=== PATIENT | male | born 1950 | race Caucasian/White ===

== ENCOUNTER 2022-03-01 12:34 | Outpatient (CLI) | payer MEDICARE, MEDICAID, SELFPAY ==
--- NOTE | 2022-03-01 12:45 | MR_ITS ---
WS: [id number] MRI LEFT KNEE NONCONTRAST TECHNIQUE: Axial PD, coronal PD fat sat, coronal PD, sagittal PD, and sagittal PD fat-sat images obta ined. CLINICAL INFORMATION: PAIN IN R KNEE COMPARISON: 015 FINDINGS: Distal quadriceps and patella tendons are intact. Hypertrophic patella. Moderate suprapatellar effusi on. Lobulated complex popliteal cyst measuring 2.4 x 2.1 x 7.1 cm. ACL and PCL are intact. Mucoid deg eneration of the ACL with chronic thinning has progressed compared to previous. Advanced tricompartme ntal arthritis with medial and lateral joint space narrowing. Moderate chondromalacia patella. Normal medial and lateral patellar retinaculum. Medial and lateral collateral ligaments appear grossly inta ct. Chronic thinning of the medial and lateral meniscus. Complex tear involving the anterior horn lat eral meniscus appears new from previous. Blunting of the anterior horn lateral meniscus. Horizontal u ndersurface tear posterior horn medial meniscus is unchanged. Peripheral extrusion of the lateral men iscus progressed compared to previous. Advanced chondromalacia involving the medial and lateral joint compartments. Subchondral edema involv ing the lateral femoral condyle and tibial plateau. This is progressed compared to previous.. MR/MR knee LT wo con* [id number] IMPRESSION: 1. Advanced tricompartmental arthritis is progressed compared to 2015. Advance d chondromalacia with subchondral edema involving the lateral femoral condyle a nd tibial plateau. 2. Complex tear involving the anterior horn lateral meniscus is new from previ ous with peripheral extrusion. 3. Moderate suprapatellar effusion. 4. Lobulated popliteal cyst has increased in size compared to previous today m easuring 2.4 x 2.1 x 7.1 cm 5. Chronic thinning of the ACL with mucoid degeneration. This is progressed co mpared to previous. Normal PCL. 6. Moderate chondromalacia patella. Outbridge grading: grade III: partial-thickness cartilage loss with focal ulcer ation
== END 2022-03-01 12:35 | disposition home or self-care (01) ==
LOC: RAD 12:36
PROVIDERS: PCP Nurse Practitioner; Visit Provider Nurse Practitioner
DX: M13.862 Other specified arthritis, left knee (principal); M22.42 Chondromalacia patellae, left knee; R60.0 Localized edema; S83.272A Complex tear of lateral meniscus, current injury, left knee, initial encounter; M25.462 Effusion, left knee; X58.XXXA Exposure to other specified factors, initial encounter; M71.22 Synovial cyst of popliteal space [Baker], left knee
CPT/HCPCS: 73721

== ENCOUNTER → 2022-04-11 12:47 | Outpatient (BNVA) | payer MEDICARE, MEDICAID, SELFPAY | PROVIDERS: PCP Nurse Practitioner; Referring Provider Nurse Practitioner; Visit Provider Orthopaedic Surgery | DX: M17.12 Unilateral primary osteoarthritis, left knee (principal) | CPT/HCPCS: 73560; 73565; 99203 ==

== ENCOUNTER → 2022-06-29 08:52 | Outpatient (BNVA) | payer MEDICARE, MEDICAID, SELFPAY | PROVIDERS: PCP Nurse Practitioner Family; Visit Provider Podiatrist Foot & Ankle Surgery | DX: S92.311A Displaced fracture of first metatarsal bone, right foot, initial encounter for closed fracture (principal); X58.XXXA Exposure to other specified factors, initial encounter; R23.8 Other skin changes; S92.321A Displaced fracture of second metatarsal bone, right foot, initial encounter for closed fracture | CPT/HCPCS: 10140; 99203 ==

== ENCOUNTER 2022-06-29 14:17 | Outpatient (CLI) | payer MEDICARE, MEDICAID, SELFPAY | END 2022-06-29 14:18 | disposition home or self-care (01) | LOC: SPT 14:20 | PROVIDERS: PCP Nurse Practitioner Family; Visit Provider Podiatrist Foot & Ankle Surgery | DX: Z46.89 Encounter for fitting and adjustment of other specified devices (principal); S92.321S Displaced fracture of second metatarsal bone, right foot, sequela; S92.31 Fracture of first metatarsal bone; X58.XXXS Exposure to other specified factors, sequela | CPT/HCPCS: L4361 ==

== ENCOUNTER → 2022-07-06 09:44 | Outpatient (BNVA) | payer MEDICARE, MEDICAID, SELFPAY | PROVIDERS: PCP Nurse Practitioner Family; Visit Provider Podiatrist Foot & Ankle Surgery | DX: S92.313A Displaced fracture of first metatarsal bone, unspecified foot, initial encounter for closed fracture (principal); S92.321A Displaced fracture of second metatarsal bone, right foot, initial encounter for closed fracture; W23.0XXA Caught, crushed, jammed, or pinched between moving objects, initial encounter | CPT/HCPCS: 99213 ==

== ENCOUNTER → 2022-07-06 10:03 | Outpatient (BNVA) | payer MEDICARE, MEDICAID, SELFPAY | PROVIDERS: PCP Nurse Practitioner Family; Visit Provider Podiatrist Foot & Ankle Surgery | DX: S92.321A Displaced fracture of second metatarsal bone, right foot, initial encounter for closed fracture (principal); S92.311A Displaced fracture of first metatarsal bone, right foot, initial encounter for closed fracture; X58.XXXA Exposure to other specified factors, initial encounter | CPT/HCPCS: 73630 ==

== ENCOUNTER → 2022-07-19 10:07 | Outpatient (BNVA) | payer MEDICARE, MEDICAID, SELFPAY | PROVIDERS: PCP Nurse Practitioner Family; Visit Provider Podiatrist Foot & Ankle Surgery | DX: S92.313A Displaced fracture of first metatarsal bone, unspecified foot, initial encounter for closed fracture (principal); S92.321A Displaced fracture of second metatarsal bone, right foot, initial encounter for closed fracture; W23.0XXA Caught, crushed, jammed, or pinched between moving objects, initial encounter | CPT/HCPCS: 73630; 99213 ==

== ENCOUNTER 2022-07-27 07:46 | Outpatient (CLI) | payer MEDICARE, MEDICAID, SELFPAY ==
--- NOTE | 2022-07-27 08:45 | USCV_ITS ---
Brodie Blankenship Age: 71 Gender: M : 1950 Exam Date: 07/27/2022 08:07 Ordering Phys: Linda LopezP Technologist: Sheron Crockett Exam Location: [facility] Indication: dizziness, weakness, Risk Factors: Smoker Previous Vascular Surgery: Unknown Right Brachial BP: / Left Brachial BP: / Right Left Velocity (cm/s) Spectral Plaque Velocity (cm/s) Spectral Plaque Syst/Diast Broadening Syst/Diast Broadening 93.70/ 18.70 Prox CCA 80.20 / 17.10 93.70/ 15.40 Mid CCA 58.40 / 17.60 67.30/ 13.20 Distal CCA 63.20 / 12.00 Pipe 59.70/ 10.90 Prox ICA 45.10 / 10.90 53.80/ 11.80 Mid ICA 91.40 / 24.80 80.60/ 19.30 Distal ICA 113.10/ 25.00 135.60 ECA 127.40 0.86 ICA/CCA 1.41 Antegrade Vertebral Antegrade 51.30/ 10.90 cm/s 47.40/ 10.10 cm/s Tri Subclavian Tri 158.3 164.7 0 0 CONCLUSIONS Right ICA stenosis <50%. Mild atheromatous plaque right carotid bulb/ICA. Left ICA stenosis <50%. Mild calcified atheromatous plaque left carotid bulb/ICA. Normal antegrade Doppler flow noted in the right vertebral artery. Normal antegrade Doppler flow noted in the left vertebral artery. Chung Cruz MD (Electronically Signed) Final Date: 27 July 2022 09:01 S
== END 2022-07-27 07:47 | disposition home or self-care (01) ==
PROVIDERS: PCP Nurse Practitioner Family; Visit Provider Nurse Practitioner Family
DX: R42 Dizziness and giddiness (principal); R53.1 Weakness; I65.23 Occlusion and stenosis of bilateral carotid arteries
CPT/HCPCS: 93880

== ENCOUNTER → 2022-08-09 10:59 | Outpatient (BNVA) | payer MEDICARE, MEDICAID, SELFPAY | PROVIDERS: PCP Nurse Practitioner Family; Visit Provider Podiatrist Foot & Ankle Surgery | DX: S92.321A Displaced fracture of second metatarsal bone, right foot, initial encounter for closed fracture (principal); S92.311A Displaced fracture of first metatarsal bone, right foot, initial encounter for closed fracture; X58.XXXA Exposure to other specified factors, initial encounter | CPT/HCPCS: 73630; 99213 ==

== ENCOUNTER → 2022-08-30 10:06 | Outpatient (BNVA) | payer MEDICARE, MEDICAID, SELFPAY | PROVIDERS: PCP Nurse Practitioner Family; Visit Provider Podiatrist Foot & Ankle Surgery | DX: S92.313A Displaced fracture of first metatarsal bone, unspecified foot, initial encounter for closed fracture (principal); S92.321A Displaced fracture of second metatarsal bone, right foot, initial encounter for closed fracture; X58.XXXA Exposure to other specified factors, initial encounter | CPT/HCPCS: 73630; 99213 ==

== ENCOUNTER 2022-09-03 13:33 | Outpatient (CLI) | payer MEDICARE, MEDICAID, SELFPAY ==
--- NOTE | 2022-09-03 13:48 | CT_ITS ---
WS: [id number] LDCT LUNG CANCER SCREENING TECHNIQUE: Noncontrast CT of the chest with coronal and sagittal reformatted images. CLINICAL INFORMATION: COPD WITH ACUTE EXACERBATION, TOBACCO USE COMPARISON: None. DLP: 72.01 mGy.cm DIvol: Mean CTDIvol: 1.60 (mGy) All CT scans at [facility] use at least one of these dose optimization techniques: automat ed exposure control; mA and/or kV adjustment per patient size (includes targeted exams where dose is matched to clinical indication); or iterative reconstruction. FINDINGS:Calcified granulomas. Mild chronic emphysematous changes. No acute pulmonary infiltrates. Sc attered fibrosis in the RIGHT upper lobe. LEFT adrenal adenoma measuring 2.6 cm. Cholecystectomy clips. Normal RIGHT adrenal gland. Normal GE j unction. Hypertrophic changes thoracic spine. Benign appearing bone island in the upper thoracic spin e. Vascular calcification. Coronary calcification. CT/CT lung screening [id number] IMPRESSION: LUNG-RADS: 1-Negative FOLLOW UP: 12 Month: Continue annual screening with LDCT
== END 2022-09-03 13:34 | disposition home or self-care (01) ==
PROVIDERS: PCP Nurse Practitioner Family; Visit Provider Nurse Practitioner Family
DX: Z12.2 Encounter for screening for malignant neoplasm of respiratory organs (principal); Z87.891 Personal history of nicotine dependence
CPT/HCPCS: 71271

== ENCOUNTER 2022-10-04 12:06 | Outpatient (CLI) | payer MEDICARE, MEDICAID, SELFPAY ==
--- NOTE | 2022-10-04 12:10 | CT_ITS ---
WS: [id number] CT adrenals with and without contrast. HISTORY: BENIGN NEOPLASM OF LEFT ADRENAL GLAND Noncontrast 5 mm imaging is performed through the abdomen with attention to the adrenal glands. Addit ional 1 minute and 15 minute delayed images are then performed through the adrenal glands. CONTRAST: Omnipaque 350; 95 mL IV. DLP: 2165.[address] scans at [facility] use at least one of these dose optimization techniques: automated e xposure control; mA and/or kV adjustment per patient size (includes targeted exams where dose is matc hed to clinical indication); or iterative reconstruction. COMPARISON: No similar studies. Prior CT lung screen 09/03/2022 Lower thorax: Small granulomata at the lung bases. Heart size is normal. Small hiatal hernia. Liver: Normal. No intrahepatic dilatation. Gallbladder: Normally distended with cholelithiasis. Pancreas: Normal. Spleen: Normal. ADRENAL GLANDS. RIGHT: Normal. No mass or enlargement. LEFT: Well-circumscribed mass in the LEFT adrenal gland measures 2.3 x 3.1 cm. Hounsfield units are v erika slightly elevated. Absolute washout calculated at 62%. Relative washout calculated at 40%. Consis tent with benign adenoma. Right kidney: Normal size kidneys with mild perinephric stranding. 2 small to characterize subcentime ter hypodensity from the posterior kidney. Left kidney: Normal size kidney with perinephric stranding. Hyperdense cyst in the mid kidney. There is a smaller cyst lower pole. Aorta: Mild atherosclerosis. GI tract: No GI tract obstruction. There are a few diverticula in the distal colon. No adenopathy or free fluid. Abdominal wall: Focal fatty replacement LEFT rectus muscle. Visualized osseous structures: Unremarkable. CT/CT abdomen wo/w con [id number] IMPRESSION: 1. LEFT adrenal adenoma. No additional imaging necessary. 2. Cholelithiasis without acute cholecystitis. 3. Colonic diverticulosis without acute diverticulitis.
[2022-10-04] MEDS: iohexol 350 mg/mL 500 mL Btl (per mL) IV (12:14)
[2022-10-04 12:48] LABS: Blood Urea Nitrogen 3 mg/dL (8-23)
== END 2022-10-04 12:07 | disposition home or self-care (01) ==
LOC: RAD 12:07
PROVIDERS: PCP Nurse Practitioner Family; Visit Provider Nurse Practitioner Family
DX: D35.02 Benign neoplasm of left adrenal gland (principal); K80.20 Calculus of gallbladder without cholecystitis without obstruction; K57.90 Diverticulosis of intestine, part unspecified, without perforation or abscess without bleeding
CPT/HCPCS: 74170; 82565; 84520

== ENCOUNTER → 2022-10-09 12:39 | Outpatient (BNVA) | payer MEDICARE, MEDICAID, SELFPAY | PROVIDERS: PCP Nurse Practitioner Family; Visit Provider Podiatrist Foot & Ankle Surgery | DX: S92.311A Displaced fracture of first metatarsal bone, right foot, initial encounter for closed fracture (principal); S92.321A Displaced fracture of second metatarsal bone, right foot, initial encounter for closed fracture; X58.XXXA Exposure to other specified factors, initial encounter | CPT/HCPCS: 73630; 99213 ==

== ENCOUNTER → 2022-11-15 16:04 | Outpatient (BNVA) | payer MEDICARE, MEDICAID, SELFPAY | PROVIDERS: PCP Nurse Practitioner Family; Visit Provider Internal Medicine Cardiovascular Disease | DX: R06.02 Shortness of breath (principal); I25.10 Atherosclerotic heart disease of native coronary artery without angina pectoris; G47.33 Obstructive sleep apnea (adult) (pediatric); E78.2 Mixed hyperlipidemia; I11.0 Hypertensive heart disease with heart failure; I50.32 Chronic diastolic (congestive) heart failure; J44.1 Chronic obstructive pulmonary disease with (acute) exacerbation; F17.200 Nicotine dependence, unspecified, uncomplicated; I48.11 Longstanding persistent atrial fibrillation | CPT/HCPCS: 36415; 80048; 83880; 99214 ==

== ENCOUNTER 2022-12-06 12:31 | Outpatient (CLI) | payer MEDICARE, MEDICAID, SELFPAY ==
[2022-12-06 13:27] LABS: Anion Gap 13.4 (5-19); Blood Urea Nitrogen 11 mg/dL (8-23); Calcium 9.6 mg/dL (8.5-10.5); Carbon Dioxide 27 mmol/L (22-29); Chloride 100 mmol/L (98-107); Glucose 124 mg/dL (65-115); NT Pro B Type Natriuretic Pept 145 pg/mL (0-125); Osmolality Calculated 283 mOsm/kg (285-295); Potassium 4.4 mmol/L (3.5-5.1); Sodium 136 mmol/L (136-145)
== END 2022-12-06 12:32 | disposition home or self-care (01) ==
LOC: LAB 12:34
PROVIDERS: PCP Nurse Practitioner Family; Visit Provider Internal Medicine Cardiovascular Disease
DX: I11.0 Hypertensive heart disease with heart failure (principal); I25.10 Atherosclerotic heart disease of native coronary artery without angina pectoris; I48.11 Longstanding persistent atrial fibrillation; I50.32 Chronic diastolic (congestive) heart failure; E11.65 Type 2 diabetes mellitus with hyperglycemia
CPT/HCPCS: 36415; 80048; 83880

== ENCOUNTER → 2023-03-25 13:20 | Outpatient (BNVA) | payer MEDICARE, MEDICAID, SELFPAY | PROVIDERS: PCP Nurse Practitioner Family; Visit Provider Nurse Practitioner Family | DX: I25.10 Atherosclerotic heart disease of native coronary artery without angina pectoris (principal); G47.33 Obstructive sleep apnea (adult) (pediatric); I48.11 Longstanding persistent atrial fibrillation; I11.0 Hypertensive heart disease with heart failure; I50.32 Chronic diastolic (congestive) heart failure; F17.200 Nicotine dependence, unspecified, uncomplicated; Z79.01 Long term (current) use of anticoagulants; J44.1 Chronic obstructive pulmonary disease with (acute) exacerbation | CPT/HCPCS: 99214 ==

== ENCOUNTER → 2023-03-27 10:50 | Outpatient (BNVA) | payer MEDICARE, MEDICAID, SELFPAY | PROVIDERS: PCP Nurse Practitioner Family; Visit Provider Podiatrist Foot & Ankle Surgery | DX: E11.65 Type 2 diabetes mellitus with hyperglycemia (principal); B35.1 Tinea unguium; G62.89 Other specified polyneuropathies; Z79.84 Long term (current) use of oral hypoglycemic drugs | CPT/HCPCS: 11721 ==

== ENCOUNTER 2023-04-21 15:39 | Emergency (ER) | payer MEDICARE, MEDICAID, SELFPAY ==
[2023-04-21 15:40] VITALS: BP 147/65; PULSE 84; RESP 16; TEMP 36.9; O2SAT 92
--- NOTE | 2023-04-21 16:02 | CTR_ITS ---
PROCEDURE INFORMATION: Exam: CT Head Without Contrast Exam date and time: 04/21/2023 4:11 PM Age: 72 years old Clinical indication: Stroke-like symptoms; Drowsines/somnolence and speech disturbance; Additional info: Symptoms of acute stroke TECHNIQUE: Imaging protocol: Computed tomography of the head without contrast. Radiation optimization: All CT scans at this facility use at least one of these dose optimization techniques: automated exposure control; mA and/or kV adjustment per patient size (includes targeted exams where dose is matched to clinical indication); or iterative reconstruction. Other technique: STROKE PROTOCOL was implemented. REPORTING DATA: Count of CT and Cardiac NM exams in prior 12 months: This patient has received 2 known CTs and 0 known cardiac nuclear medicine studies in the 12 months prior to the current study. COMPARISON: No relevant prior studies available. RADIATION DOSE METRICS: Total DLP (mGy-cm): 1072.68 FINDINGS: Brain: There is white matter lucency consistent with chronic microvascular disease. As seen on series 4, image 19 there is a left basal ganglia infarct measuring 13 mm x 6 mm. Craniocaudad dimension is 10 mm. Age is uncertain. No cortical infarct. No hemorrhage or extra-axial collection. Cerebral ventricles: There is no hydrocephalus. There is no hydrocephalus. Paranasal sinuses: Visualized sinuses are unremarkable. No fluid levels. Mastoid air cells: Visualized mastoid air cells are well aerated. Bones/joints: Unremarkable. No acute fracture. Soft tissues: Unremarkable. CT/CT head thrombolytic [id number] IMPRESSION: Chronic microvascular disease. 13 mm left basal ganglia infarct of uncertain age. This may be subacute ASSESSMENT: ASPECTS ([place] Stroke Program Early CT Score) 9
--- NOTE | 2023-04-21 16:06 | ED_ITS ---
HPI - Neuro Symptoms/Deficit General: Chief Complaint: Neuro Symptoms/Deficit Stated Complaint: AMS Time Seen by Provider: 04/21/23 15:41 Source: patient Mode of arrival: EMS Limitations: no limitations History of Present Illness: This 72-year-old male with a history of COPD, CHF, diabetes and hypertension was brought in by EMS for evaluation of speech difficulty. Patient notes that he was deep in sleep when the woke him up around 2 PM. When he got up, he noticed he could not talk. He knew what he wanted to say but he could not verbalize it. This lasted for about 15 minutes. EMS was called and they brought him in for evaluation. Now, patient is back to his baseline and has no focal weakness. This has never happened to him before and he has no prior history of CVA. Associated symptoms: Deny chest pain or headache(s) Review of Systems Const: Denies: chills, body aches or change in appetite Eyes: Denies: change in vision or eye discharge ENMT: Denies: throat pain, dental pain or nasal discharge Card: Denies: chest pain or lightheadedness : Denies: dysuria Musc: Denies: neck pain or back pain Neuro: Reports: other (Difficulty speaking.); Denies: headache(s) or weakness in extremities Psych: Denies: depression Abbe/Lymph: Denies: easy bruising All/Imm: Denies: urticaria, tongue swelling or facial swelling PFSH ED PFSH: Medical History Arthritis Atrial fibrillation CAD (coronary artery disease) CHF (congestive heart failure) Chronic depression Diabetes Hyperlipidemia Hypertension Insomnia Obstructive sleep apnea Restless leg syndrome Family History Mother CAD (coronary artery disease) Sister CAD (coronary artery disease) Brother CAD (coronary artery disease) Denies family history of Diabetes Clotting disorder Dementia Chronic kidney disease (CKD) Suicide Anesthesia complication Bleeding disorder Lung disease Cancer Stroke Social History Smoking and tobacco status: current every day smoker Alcohol intake: never Substance/Drug Use: never Physical Exam Const: COMMON NORMALS: no acute distress, patient oriented x3, no limitations and alert HENMT: COMMON NORMALS: normocephalic HEAD & SCALP: normocephalic Eye: COMMON NORMALS: EOMs intact bilaterally Neck/C-Spine: COMMON NORMALS: full ROM and supple Chest: COMMONS NORMALS: normal inspection of the chest Resp: COMMON NORMALS: normal respiratory effort, No retractions, No use of accessory muscles and clear to auscultation bilaterally AUSCULTATION: clear to auscultation bilaterally Cardio: COMMON NORMALS: regular rate, regular rhythm and No murmurs present (Cardio) RATE: regular rate RHYTHM: regular rhythm GI: COMMON NORMALS: Normal to inspection, nondistended, normoactive bowel sounds present and non-tender : COMMON NORMALS: Yes no CVA tenderness BLADDER/KIDNEY EXAM: Yes no CVA tenderness Back/Pelvis: COMMON NORMALS: no CVA tenderness and no thoracic nor lumbar te nderness Extremity: GENERAL: Yes normal exam except as noted Neuro: COMMON NORMALS: patient oriented x3 and no focal motor deficits SENSORIUM/ORIENTATION: Yes alert SPEECH: speech normal MOTOR EXAM: 5/5 motor strength present throughout OTHER: NIH stroke scale is 0. Psych: COMMON NORMALS: mental status grossly normal and cooperative Course Vital Signs: Vital signs: Vital Signs Temperature 98.5 F 04/21/23 15:40 Pulse Rate 84 04/21/23 15:40 Respiratory Rate 18 04/21/23 16:36 Blood Pressure 140/78 04/21/23 17:57 Pulse Oximetry 94 04/21/23 16:36 Oxygen Delivery Me thod Room Air 04/21/23 16:36 MDM - Neuro Symptoms/Deficit Medical Decision Making Medical decision making: Patient presents with expressive aphasia that lasted for about 15 minutes at around 2 PM today. Since then, patient has been at his baseline. NIH stroke scale is 0. CT brain reveals chronic microvascular disease. 13 mm x 6 mm left basal ganglia infarct of uncertain age. This may be subacute. I discussed the case with Dr. Witt, neurologist on-call. We reviewed patient's medical records together including the fact that he had a carotid Doppler ultrasound on 07/27/2022. It showed a less than 50% right ICA stenosis and a less than 50% left ICA stenosis. He currently takes Eliquis and Plavix. Dr. Witt advised him to continue taking those medications. There is no indication to admit patient at this time. Dr. Witt will see him in the office in a week's time. This was relayed to patient who verbalized understanding and agrees with the plan. Reasons to return were discussed. Lab Data 04/21/23 16:30 04/21/23 16:[address] 04/21/23 16:02 IMPRESSION: Chronic microvascular disease. 13 mm left basal ganglia infarct of uncertain age. This may be subacute ASSESSMENT: ASPECTS ([place] Stroke Program Early CT Score) 9 ADDENDUM: 04/21/23 [id number] THIS REPORT CONTAINS FINDINGS THAT MAY BE CRITICAL TO PATIENT CARE. The findings were verbally communicated via telephone conference with DIMITRI UP at 5:03 PM CDT on 04/21/2023. The findings were acknowledged and understood. Laboratory Results WBC 8.8 10^3/uL (4.0-10.0) 04/21/23 16:30 RBC 3.96 10^6/uL (4.1-5.3) L 04/21/23 16:30 Hgb 9.8 g/dL (11.7-16.6) L 04/21/23 16:30 Hct 33.6 % (42.0-52.0) L 04/21/23 16:30 MCV 84.8 fl (80-94) 04/21/23 16:30 MCH 24.7 pg (28.0-34.0) L 04/21/23 16:30 MCHC 29.2 g/dL (30.0-36.0) L 04/21/23 16:30 RDW 15.8 % (12.1-15.1) H 04/21/23 16:30 Plt Count 244 10^3/cmm (130-400) 04/21/23 16:30 MPV 10.2 fL (7.4-10.4) 04/21/23 16:30 Neut % (Auto) 71.6 % 04/21/23 16:30 Lymph % (Auto) 15.4 % 04/21/23 16:30 [place] % (Auto) 9.4 % 04/21/23 16:30 Eos % (Auto) 2.2 % 04/21/23 16:30 Baso % (Auto) 0.9 % 04/21/23 16:30 Neut # (Auto) 6.29 10^3/uL (1.8-7.7) 04/21/23 16:30 Lymph # (Auto) 1.4 10^3/uL (0.8-4.8) 04/21/23 16:30 [place] # (Auto) 0.8 10^3/uL (0.2-0.9) 04/21/23 16:30 Eos # (Auto) 0.2 10^3/uL (0.0-0.8) 04/21/23 16:30 Baso # (Auto) 0.1 10^3/uL (0.0-0.1) 04/21/23 16:30 Nucleated RBC % (auto) 0 % 04/21/23 16:30 Nucleated RBCs # 0.0 /100WBC 04/21/23 16:30 PT 13.60 SECONDS (12.1-14.9) 04/21/23 16:30 INR 1.01 (0.8-1.2) 04/21/23 16:30 APTT 28.9 SECONDS (23.9-36.7) 04/21/23 16:30 Sodium 138 mmol/L (136-145) 04/21/23 16:30 Potassium 3.2 mmol/L (3.5-5.1) L 04/21/23 16:30 Chloride 97 mmol/L (98-107) L 04/21/23 16:30 Carbon Dioxide 27 mmol/L (22-29) 04/21/23 16:30 Anion Gap 17.2 (5-19) 04/21/23 16:30 BUN 6 mg/dL (8-23) L 04/21/23 16:30 Creatinine 0.9 mg/dL (0.7-1.2) 04/21/23 16:30 GFR Calculation Not Reportable 04/21/23 16:30 Glucose 161 mg/dL (65-115) H 04/21/23 16:30 Calculated Osmolality 287 mOsm/kg (285-295) 04/21/23 16:30 Calcium 8.7 mg/dL (8.5-10.5) 04/21/23 16:30 Total Bilirubin 0.3 mg/dL (0.15-1.2) 04/21/23 16:30 AST 17 U/L (0-40) 04/21/23 16:30 ALT 16 U/L (0-41) 04/21/23 16:30 Alkaline Phosphatase 70 U/L (40-130) 04/21/23 16:30 Total Protein 6.5 g/dL (6.6-8.7) L 04/21/23 16:30 Albumin 3.8 g/dL (3.5-5.2) 04/21/23 16:30 Globulin 2.7 g/dL (1.3-4.6) 04/21/23 16:30 EKG Data EKG 1: Interpretation: Sinus rhythm, rate of 89, PVCs, prolonged NM interval, normal axis, no STEMI. Discharge Plan Discharge Patient Disposition: Home Clinical Impression: TIA (transient ischemic attack) Condition: Stable Prescriptions: No Action ropinirole 2 mg tablet 4 mg PO DAILY trazodone 150 mg tablet 150 mg PO BEDTIME tamsulosin 0.4 mg capsule 0.4 mg PO DAILY metoprolol succinate 100 mg tablet extended release 24 hr 100 mg PO DAILY clopidogrel [Plavix] 75 mg tablet 75 mg PO DAILY Eliquis 5 mg tablet 5 mg PO BID magnesium oxide 400 mg magnesium tablet 400 mg PO DAILY omeprazole 20 mg capsule,delayed release(DR/EC) 20 mg PO DAILY amlodipine 5 mg tablet 5 mg PO DAILY Qty: 30 5RF rosuvastatin [Crestor] 10 mg tablet 10 mg PO DAILY Qty: 30 5RF (DME) Diabetic shoes with 3 pairs of inserts See Rx Instructions .Route .MEDSUPPLY Qty: 1 0RF Rx Instructions: As directed HOME budesonide-formoterol [Symbicort] 160-4.5 mcg/actuation HFA aerosol inhaler 2 inh inhalation BID Qty: 10.2 1RF gabapentin 300 mg capsule 300 mg PO TID metformin 750 mg tablet extended release 24 hr 750 mg PO DAILY (DME) Cam boot to right See Rx Instructions .Route .MEDSUPPLY Qty: 1 0RF Rx Instructions: As directed furosemide [Lasix] 20 mg tablet 20 mg PO DAILY Qty: 30 5RF potassium chloride 8 mEq tablet extended release 8 meq PO DAILY Qty: 30 5RF Jardiance 10 mg tablet 10 mg PO DAILY Qty: 30 5RF spironolactone 25 mg tablet 25 mg PO DAILY Qty: 30 5RF albuterol sulfate 2.5 mg /3 mL (0.083 %) solution for nebulization 2.5 mg inhalation Q6H PRN (Reason: Shortness Of Breath) Nitrostat 0.4 mg Tablet, Sublingual 0.4 mg SUBLINGUAL Q5M PRN (Reason: Chest Pain) Rx Instructions: do not exceed 3 doses per episode duloxetine 60 mg capsule,delayed release(DR/EC) 60 mg PO DAILY lisinopril 40 mg tablet 40 mg PO DAILY ProAir RespiClick 90 mcg/actuation aerosol powdr breath activated 1 inh inhalation Q6H PRN (Reason: Shortness Of Breath) Discharge Orders: Discharge ED (Routine); Ordered 04/21/23 Ordered By: Dimitri Up Referrals: Shanta Irby, [employer]AL [employer]ATER [Primary Care Provider] - Patient Instructions: Opioid Safety, Pain Management Activity Restrictions/Additional Instructions: Follow-up with Dr. Bauer in the office in a week's time. Also schedule an appointment to follow-up with your automation clerk. Return if you develop any new or worsening symptoms. Coding Level of Care Code ED Administrative Resources Associate for Kelsey Andre
--- NOTE | 2023-04-21 16:18 | ECG_ITS ---
[facility] Test Date: 2023-04-21 Pat Name: Brodie Blankenship Department: Room: Gender: Male Pbx Wire Chief: : 1950 Requested By: Dimitri Easley Order Number: [id number] MD: Rock Grady M.D. Measurements Intervals [place] Rate: 89 P: 56 [place]: 215 QRS: 36 QRSD: 97 T: 50 QT: 383 QTc: 467 Interpretive Statements SINUS RHYTHM WITH FIRST DEGREE AV BLOCK WITH FREQUENT SUPRAVENTRICULAR PREMATURE COMPLEXES LOW QRS VOLTAGE IN PRECORDIAL LEADS [QRS DEFLECTION < 1.0 mV IN CHEST LEADS] ANTEROSEPTAL MYOCARDIAL INFARCTION , PROBABLY OLD [40+ ms Q WAVE IN V1-V4] Compared to ECG 02/24/2019 02:13:59 First degree AV block now present Atrial fibrillation no longer present Myocardial infarct finding still present Electronically Signed On 04-21-2023 23:10:10 CDT by Rock Grady M.D. [email or web address]
[2023-04-21 16:36] VITALS: RESP 18; O2SAT 94
[2023-04-21 16:41] LABS: Basophils # 0.1 10^3/uL (0.0-0.1); Basophils % 0.9 %; Eosinophils # 0.2 10^3/uL (0.0-0.8); Eosinophils % 2.2 %; Hematocrit 33.6 % (42.0-52.0); Hemoglobin 9.8 g/dL (11.7-16.6); Lymphocytes # 1.4 10^3/uL (0.8-4.8); Lymphocytes % 15.4 %; Mean Corpuscular HGB Conc 29.2 g/dL (30.0-36.0); Mean Corpuscular Hemoglobin 24.7 pg (28.0-34.0); Mean Corpuscular Volume 84.8 fl (80-94); Mean Platelet Volume 10.2 fL (7.4-10.4); Monocytes # 0.8 10^3/uL (0.2-0.9); Monocytes % 9.4 %; Neutrophils # 6.29 10^3/uL (1.8-7.7); Neutrophils % 71.6 %; Nucleated Red Blood Cells % 0 %; Platelet Count 244 10^3/cmm (130-400); Red Blood Count 3.96 10^6/uL (4.1-5.3); Red Cell Distribution Width 15.8 % (12.1-15.1); White Blood Count 8.8 10^3/uL (4.0-10.0)
[2023-04-21 16:53] LABS: INR 1.01 (0.8-1.2); Partial Thromboplastin Time 28.9 SECONDS (23.9-36.7)
[2023-04-21 17:09] LABS: Alanine Aminotransferase 16 U/L (0-41); Albumin Level 3.8 g/dL (3.5-5.2); Alkaline Phosphatase 70 U/L (40-130); Anion Gap 17.2 (5-19); Aspartate Amino Transferase 17 U/L (0-40); Blood Urea Nitrogen 6 mg/dL (8-23); Calcium 8.7 mg/dL (8.5-10.5); Carbon Dioxide 27 mmol/L (22-29); Chloride 97 mmol/L (98-107); Globulin 2.7 g/dL (1.3-4.6); Glucose 161 mg/dL (65-115); Osmolality Calculated 287 mOsm/kg (285-295); Potassium 3.2 mmol/L (3.5-5.1); Sodium 138 mmol/L (136-145); Total Bilirubin 0.3 mg/dL (0.15-1.2); Total Protein 6.5 g/dL (6.6-8.7)
[2023-04-21 17:57] VITALS: BP 140/78
--- NOTE | 2023-04-22 13:53 | DCPLANNER ---
Addendum entered by Lauren Ruiz 04/25/23 10:34: manager technical sales received the following message from the neurology clinic regarding follow up appointment: attempted to contact pt several times and never recvied an anwser Original Note: manager technical sales had message to schedule a follow up appointment for patient with neurology. manager technical sales sent patients information to the front office staff at neurology. Patients information will be printed and reviewed. Clinic will call patient with appointment information.
== END 2023-04-21 19:07 | disposition home or self-care (01) ==
PROVIDERS: Emergency Provider Family Medicine; PCP Nurse Practitioner Family
DX: G45.9 Transient cerebral ischemic attack, unspecified (principal); R93.0 Abnormal findings on diagnostic imaging of skull and head, not elsewhere classified
CPT/HCPCS: 70450; 80053; 85025; 85610; 85730; 93005; 99285

== ENCOUNTER → 2023-05-30 15:29 | Outpatient (BNVA) | payer MEDICARE, MEDICAID, SELFPAY | PROVIDERS: PCP Nurse Practitioner Family; Visit Provider Internal Medicine Cardiovascular Disease | DX: I50.32 Chronic diastolic (congestive) heart failure (principal); R06.02 Shortness of breath; I25.10 Atherosclerotic heart disease of native coronary artery without angina pectoris; I11.0 Hypertensive heart disease with heart failure; E78.2 Mixed hyperlipidemia; E11.65 Type 2 diabetes mellitus with hyperglycemia; I48.11 Longstanding persistent atrial fibrillation; F17.200 Nicotine dependence, unspecified, uncomplicated | CPT/HCPCS: 80048; 83880; 99214 ==

== ENCOUNTER → 2023-06-20 12:22 | Outpatient (BNVA) | payer MEDICARE, MEDICAID, SELFPAY | PROVIDERS: PCP Nurse Practitioner Family; Visit Provider Internal Medicine Pulmonary Disease | DX: J44.1 Chronic obstructive pulmonary disease with (acute) exacerbation (principal); R06.02 Shortness of breath; F17.200 Nicotine dependence, unspecified, uncomplicated | CPT/HCPCS: 36415; 82785; 86003; 99204 ==

== ENCOUNTER 2023-07-04 11:57 | Outpatient (CLI) | payer MEDICARE, MEDICAID, SELFPAY ==
--- NOTE | 2023-07-04 12:15 | CT_ITS ---
WS: [id number] LDCT LUNG CANCER SCREENING HISTORY: lung cancer screening TECHNIQUE: Axial imaging performed from the apices to 1 cm below the costophrenic angles. Coronal and sagittal reformats are submitted with axial MIP series. All CT scans at [facility] use at least one of these dose optimization techniques: automated exposure control; mA and/or kV adjustment per patient size (includes targeted exams where dose is matched to clinical indication); or iterativ e reconstruction. DLP: 155.59 mGy.cm DIvol: Mean CTDIvol: 3.70 (mGy) COMPARISON: 09/03/2022 Diagnostic quality: Quality is degraded by body habitus. Lungs: Centrilobular and paraseptal emphysema. Scattered granulomata. Peripheral interstitial fibrosi s. No pulmonary mass or nodule. No endobronchial lesions. Heart: Normal size heart. Moderate [place] coronary artery calcification burden.. Other findings: Moderate atherosclerotic plaque within the thoracic aorta. Normal size pulmonary cristina ry. No mediastinal or hilar adenopathy. Small hiatal hernia. Mild hepatic steatosis. Cholelithiasis. Stable left adrenal adenoma. IMPRESSION: CT/CT lung screening [id number] LUNG-RADS: 1S-Negative with Significant Findings FOLLOW UP: 12 Month: Continue annual screening with LDCT OTHER FINDINGS (S MODIFIER): Moderate coronary artery atherosclerosis. Consider evaluation by cardiology.
== END 2023-07-04 11:58 | disposition home or self-care (01) ==
PROVIDERS: PCP Nurse Practitioner Family; Visit Provider Internal Medicine Pulmonary Disease
DX: F17.200 Nicotine dependence, unspecified, uncomplicated (principal); J44.1 Chronic obstructive pulmonary disease with (acute) exacerbation; Z12.2 Encounter for screening for malignant neoplasm of respiratory organs
CPT/HCPCS: 71271

== ENCOUNTER 2023-07-11 12:48 | Outpatient (CLI) | payer MEDICARE, MEDICAID, SELFPAY ==
[2023-07-11 13:09] VITALS: PULSE 86; RESP 18; O2SAT 95
[2023-07-11] MEDS: albuterol 2.5 mg/3 mL Neb INHALATION (13:09)
[2023-07-11 13:14] VITALS: PULSE 90
== END 2023-07-11 12:49 | disposition home or self-care (01) ==
LOC: RT 12:49
PROVIDERS: PCP Nurse Practitioner Family; Visit Provider Internal Medicine Pulmonary Disease
DX: J44.1 Chronic obstructive pulmonary disease with (acute) exacerbation (principal); R06.02 Shortness of breath; F17.210 Nicotine dependence, cigarettes, uncomplicated; R94.2 Abnormal results of pulmonary function studies
CPT/HCPCS: 94060; 94618; 94726; 94729

== ENCOUNTER → 2023-08-19 08:16 | Outpatient (BNVA) | payer MEDICARE, MEDICAID, SELFPAY | PROVIDERS: PCP Nurse Practitioner Family; Visit Provider Internal Medicine Pulmonary Disease | DX: J43.9 Emphysema, unspecified (principal); J84.10 Pulmonary fibrosis, unspecified; G47.33 Obstructive sleep apnea (adult) (pediatric); I50.32 Chronic diastolic (congestive) heart failure; Z12.2 Encounter for screening for malignant neoplasm of respiratory organs; I25.10 Atherosclerotic heart disease of native coronary artery without angina pectoris; Z71.6 Tobacco abuse counseling; F17.210 Nicotine dependence, cigarettes, uncomplicated; Z91.199 Patient's noncompliance with other medical treatment and regimen due to unspecified reason; Z95.5 Presence of coronary angioplasty implant and graft; I11.0 Hypertensive heart disease with heart failure | CPT/HCPCS: 36415; 85651; 86038; 86140; 86200; 86225; 86235; 86431; 99214 ==

== ENCOUNTER → 2023-09-30 11:10 | Outpatient (BNVA) | payer MEDICARE, MEDICAID, SELFPAY | PROVIDERS: PCP Nurse Practitioner Family; Visit Provider Podiatrist Foot & Ankle Surgery | DX: E11.65 Type 2 diabetes mellitus with hyperglycemia; B35.1 Tinea unguium; G62.89 Other specified polyneuropathies; E11.42 Type 2 diabetes mellitus with diabetic polyneuropathy; Z79.84 Long term (current) use of oral hypoglycemic drugs | CPT/HCPCS: 11721 ==

== ENCOUNTER → 2023-12-10 13:36 | Outpatient (BNVA) | payer MEDICARE, MEDICAID, SELFPAY | PROVIDERS: PCP Nurse Practitioner Family; Visit Provider Internal Medicine Cardiovascular Disease | DX: I11.0 Hypertensive heart disease with heart failure (principal); I50.32 Chronic diastolic (congestive) heart failure; E78.2 Mixed hyperlipidemia; I48.11 Longstanding persistent atrial fibrillation; I25.10 Atherosclerotic heart disease of native coronary artery without angina pectoris; F17.210 Nicotine dependence, cigarettes, uncomplicated | CPT/HCPCS: 99214 ==

== ENCOUNTER → 2024-01-29 11:34 | Outpatient (BNVA) | payer MEDICARE, MEDICAID, SELFPAY | PROVIDERS: PCP Nurse Practitioner Family; Visit Provider Internal Medicine Rheumatology | DX: Z79.899 Other long term (current) drug therapy (principal); M19.90 Unspecified osteoarthritis, unspecified site | CPT/HCPCS: 36415; 73630; 80076; 82565; 83520; 85025; 85651; 86140; 99204 ==

== ENCOUNTER → 2024-02-17 08:18 | Outpatient (BNVA) | payer MEDICARE, MEDICAID, SELFPAY | PROVIDERS: PCP Nurse Practitioner Family; Visit Provider Internal Medicine Pulmonary Disease | DX: J43.9 Emphysema, unspecified (principal); J84.10 Pulmonary fibrosis, unspecified; G47.33 Obstructive sleep apnea (adult) (pediatric); I50.32 Chronic diastolic (congestive) heart failure; Z12.2 Encounter for screening for malignant neoplasm of respiratory organs; I25.10 Atherosclerotic heart disease of native coronary artery without angina pectoris; Z71.6 Tobacco abuse counseling | CPT/HCPCS: 99214 ==

== ENCOUNTER → 2024-03-30 10:52 | Outpatient (BNVA) | payer MEDICARE, MEDICAID, SELFPAY | PROVIDERS: PCP Nurse Practitioner Family; Visit Provider Podiatrist Foot & Ankle Surgery | DX: B35.1 Tinea unguium (principal); E11.65 Type 2 diabetes mellitus with hyperglycemia; G62.89 Other specified polyneuropathies; Z79.84 Long term (current) use of oral hypoglycemic drugs | CPT/HCPCS: 11721; 99213 ==

== ENCOUNTER → 2024-06-09 13:37 | Outpatient (BNVA) | payer MEDICARE, MEDICAID, SELFPAY | PROVIDERS: PCP Nurse Practitioner Family; Visit Provider Internal Medicine Cardiovascular Disease | DX: I25.10 Atherosclerotic heart disease of native coronary artery without angina pectoris (principal); I11.0 Hypertensive heart disease with heart failure; I50.32 Chronic diastolic (congestive) heart failure; E78.2 Mixed hyperlipidemia; I48.11 Longstanding persistent atrial fibrillation; Z79.01 Long term (current) use of anticoagulants; F17.210 Nicotine dependence, cigarettes, uncomplicated | CPT/HCPCS: 99214 ==

== ENCOUNTER 2024-07-14 13:39 | Outpatient (CLI) | payer MEDICARE, MEDICAID, SELFPAY ==
--- NOTE | 2024-07-14 13:52 | CT_ITS ---
WS: [id number] LDCT LUNG CANCER SCREENING TECHNIQUE: Noncontrast CT of the chest with coronal and sagittal reformatted images. CLINICAL INFORMATION: NICOTINE DEPENDENCE,CIGARETTES COMPARISON: CT 07/04/2023 DLP: 122.77 mGy.cm DIvol: Mean CTDIvol: 3.20 (mGy) All CT scans at [facility] use at least one of these dose optimization techniques: automat ed exposure control; mA and/or kV adjustment per patient size (includes targeted exams where dose is matched to clinical indication); or iterative reconstruction. FINDINGS: No new suspicious pulmonary parenchymal abnormalities. Chronic emphysematous changes. Normal caliber thoracic aorta. Aortic calcification. Coronary calcific ation. No mediastinal or hilar lymphadenopathy. No axillary lymphadenopathy. Stable LEFT adrenal adenoma. Normal RIGHT adrenal gland. Tiny esophageal hiatal hernia. Mild thoracic curve. Hypertrophic changes thoracic spine. Mild thoracic kyphosis. CT/CT lung screening [id number] IMPRESSION: LUNG-RADS: 1-Negative FOLLOW UP: 12 Month: Continue annual screening with LDCT
== END 2024-07-14 13:40 | disposition home or self-care (01) ==
PROVIDERS: PCP Nurse Practitioner Family; Visit Provider Nurse Practitioner Family
DX: F17.210 Nicotine dependence, cigarettes, uncomplicated (principal); I70.0 Atherosclerosis of aorta; I25.10 Atherosclerotic heart disease of native coronary artery without angina pectoris
CPT/HCPCS: 71271

== ENCOUNTER → 2024-10-26 13:18 | Outpatient (BNVA) | payer MEDICARE, MEDICAID, SELFPAY | PROVIDERS: PCP Nurse Practitioner Family; Visit Provider Specialist | DX: M17.0 Bilateral primary osteoarthritis of knee | CPT/HCPCS: 20610; 73560; 73565; 99204; J7318 ==

== ENCOUNTER → 2024-12-14 12:33 | Outpatient (BNVA) | payer MEDICARE, MEDICAID, SELFPAY | PROVIDERS: PCP Nurse Practitioner Family; Referring Provider Nurse Practitioner Family; Visit Provider Nurse Practitioner Family | DX: L57.8 Other skin changes due to chronic exposure to nonionizing radiation (principal); D22.39 Melanocytic nevi of other parts of face; D48.5 Neoplasm of uncertain behavior of skin; L57.0 Actinic keratosis | CPT/HCPCS: 11102; 17000; 99203 ==

== ENCOUNTER → 2025-02-15 13:47 | Outpatient (BNVA) | payer MEDICARE, MEDICAID, SELFPAY | PROVIDERS: PCP Nurse Practitioner Family; Visit Provider Dermatology | DX: D04.62 Carcinoma in situ of skin of left upper limb, including shoulder (principal); B07.8 Other viral warts; L53.8 Other specified erythematous conditions; L29.89 Other pruritus; L57.0 Actinic keratosis; D48.5 Neoplasm of uncertain behavior of skin | CPT/HCPCS: 11102; 17000; 17110; 17273 ==

== ENCOUNTER → 2025-07-13 14:06 | Outpatient (BNVA) | payer OTHER, MEDICAID, SELFPAY | PROVIDERS: PCP Nurse Practitioner Family; Visit Provider Student in an Organized Health Care Education/Training Program | DX: M17.0 Bilateral primary osteoarthritis of knee (principal) | CPT/HCPCS: 20610; 73560; 73565; 99214; J3301; J9999 ==

== ENCOUNTER 2025-10-05 13:43 | Outpatient (CLI) | payer OTHER, MEDICAID, SELFPAY ==
--- NOTE | 2025-10-05 13:49 | US_ITS ---
WS: [id number] INDICATION: Soft tissue neck mass TECHNIQUE: Ultrasound soft tissue area of concern. FINDINGS: In the area of concern, RIGHT cervical chain posterior to the right ear, there is a markedly enlarged pathologic appearing lymph node with diffuse cortical thickening and narrowing of the fatty hilum. Lymph node measures 3.6 x 2.4 x 1.5 cm. Until proven otherwise, findings suspicious for neoplasm in a patient this age. Recommend further evaluation with contrast-enhanced CT neck. Lymph node demonstrates increased vascularity as well. US/US soft tissue head neck [id number] IMPRESSION: 1. Highly suspicious lymph node in the area of concern with a pathologic allie earance suspicious for neoplasm in a patient of this age until proven otherwise . Recommend further evaluation with contrast-enhanced CT neck.
== END 2025-10-05 13:44 | disposition home or self-care (01) ==
LOC: RAD 13:44
PROVIDERS: PCP Nurse Practitioner Family; Visit Provider Nurse Practitioner Family
DX: R59.0 Localized enlarged lymph nodes (principal); M79.89 Other specified soft tissue disorders
CPT/HCPCS: 76536

== ENCOUNTER → 2025-10-19 13:02 | Outpatient (BNVA) | payer MEDICARE, MEDICAID, SELFPAY | PROVIDERS: PCP Nurse Practitioner Family; Visit Provider Student in an Organized Health Care Education/Training Program | DX: M17.0 Bilateral primary osteoarthritis of knee (principal) | CPT/HCPCS: 99213 ==

== ENCOUNTER → 2025-11-02 10:35 | Outpatient (BNVA) | payer MEDICARE, MEDICAID, SELFPAY | PROVIDERS: PCP Nurse Practitioner Family; Visit Provider Physician Assistant | DX: M17.0 Bilateral primary osteoarthritis of knee (principal) | CPT/HCPCS: 20610; 99213; J7318 ==

== ENCOUNTER 2025-11-15 11:07 | Outpatient (CLI) | payer MEDICARE, MEDICAID, SELFPAY ==
--- NOTE | 2025-11-15 11:14 | CT_ITS ---
WS: [id number] CT NECK WITH CONTRAST HISTORY: ABNORMAL FINDINGS IN DIAGNOSTIC IMAGING TECHNIQUE: Contiguous 2 mm axial images are performed through the neck with intravenous contrast. Sagittal and coronal reformats are also submitted. All CT scans at [facility] use at least one of these dose optimization techniques: automated exposure control; mA and/or kV adjustment per patient size (includes targeted exams where dose is matched to clinical indication); or iterative reconstruction. CONTRAST: CONTRAST: Omnipaque 350; 100 mL IV. DLP: 244.44 mGy.cm COMPARISON: RIGHT neck ultrasound 10/05/2025 Bilateral intensely enhancing masses are identified within each parotid gland. The largest in the RIGHT parotid gland corresponds to the palpable abnormality. This mass is reniform in shape and diffusely enhancing measuring 2.2 x 1.7 x 2.3 cm. Suspect this is an abnormal lymph node. There are additional similar enhancing mass within the RIGHT parotid gland. Numerous but smaller masses in the LEFT parotid gland. The largest mass in the superficial parotid measures 1.3 x 1.1 x 1.6 cm. There is an additional mass in the superficial more anterior LEFT parotid gland which is smaller. There are a few additional lymph nodes along the cervical chains which are not particularly enlarged. These lymph nodes do not appear pathologic. Small superior mediastinal lymph nodes. Normal appearance of the thyroid. Submandibular glands and sublingual glands are unremarkable. Nasopharynx and oropharynx are normal. Atherosclerosis in the aortic arch. Visualized paranasal sinuses and mastoid air cells are normal. Chronic appearing interstitial lung disease at the apices. CT/CT neck w con* [id number] IMPRESSION: 1. Bilateral, multiple, enhancing parotid masses. Some of these masses may be abnormal lymph nodes. Largest mass in the superficial RIGHT parotid measures 2. 2 x 1.7 x 2.3 cm. Differential includes both benign and malignant etiologies. C onsider lymphoma and Warthin's tumors. Recommend follow-up with ENT at this deborah e. 2. Small bilateral cervical chain lymph nodes do not appear pathologic.
[2025-11-15 11:44] LABS: Blood Urea Nitrogen 9 mg/dL (8-23)
[2025-11-15] MEDS: iohexol 350 mg/mL 500 mL Btl (per mL) IV (11:53)
== END 2025-11-15 11:08 | disposition home or self-care (01) ==
LOC: RAD 11:07
PROVIDERS: Radiology Neuroradiology; PCP Nurse Practitioner Family; Visit Provider Nurse Practitioner Family
DX: R93.89 Abnormal findings on diagnostic imaging of other specified body structures (principal); I70.0 Atherosclerosis of aorta; J84.89 Other specified interstitial pulmonary diseases; R59.0 Localized enlarged lymph nodes
CPT/HCPCS: 70491; 82565; 84520